=== PATIENT | male | born 1975 | race Caucasian/White ===

== ENCOUNTER 2017-05-18 21:23 | Emergency (ER) | payer SELFPAY ==
[2017-05-18 21:50] VITALS: BP 134/83
== END 2017-05-18 21:54 | disposition left against medical advice (07) ==
LOC: ER 21:23
DX: Z53.21 Procedure and treatment not carried out due to patient leaving prior to being seen by health care provider (principal)

== ENCOUNTER 2017-05-27 19:47 | Emergency (ER) | payer SELFPAY ==
[2017-05-27 19:59] VITALS: BP 129/92
[2017-05-27] MEDS ORDERED: LIDOCAINE 1% INJ-PF (10 MG/ML) 30 ML SDV INJ ONE (20:02)
--- NOTE | 2017-05-27 20:03 | ER Document Report ---
HPI - HPI Patient complains to provider of: Left index finger laceration Pain Level: 3 Context: Patient is a 42-year-old male presents emergency department with left index finger laceration. Patient already in a cast from a previous wrist injury. States that he was trying to stop piece of wood when the wood slipped and using a band saw he cut his finger. Patient able to move it and sensation intact distal to the injury. Patient's tetanus is up-to-date. Patient states that he did have some beers prior to arrival due to the pain. Past Medical History - Social History Smoking Status: Current Every Day Smoker Family History: Arthritis, DM, Hyperlipidemia, Hypertension, Malignancy Renal/ Medical History: Denies: Hx Peritoneal Dialysis Traumatic Medical History: Reports: Hx Fractures - Ankle fingers toes shoulder elbow Past Surgical History: Reports: Hx Orthopedic Surgery - Tendon surgery hand, Other - Laser surgery to laryngeal cancer - Immunizations Immunizations up to date: Yes Hx Diphtheria, Pertussis, Tetanus Vaccination: Yes Vertical Provider Document - CONSTITUTIONAL Agree With Documented VS: Yes Notes: PHYSICAL EXAM GENERAL: Alert, interacts well. EXTREMITIES: Moves all 4 extremities spontaneously. No edema, radial pulses 2/4 bilaterally. No cyanosis. Cap refill less than 2 seconds in all upper extremity digits. NEUROLOGICAL: Alert and oriented x4. Normal speech. Sensation intact in all upper extremity digits PSYCH: Normal affect, normal mood. SKIN: Warm, dry, normal turgor. Proximal phalanx dorsal surface of the left index finger over the with a flap laceration measuring approximately 3 cm - INFECTION CONTROL TRAVEL OUTSIDE OF THE [place] IN LAST 30 DAYS: No - RESPIRATORY O2 Sat by Pulse Oximetry: 96 Course - Re-evaluation Re-evalutation: 05/27/17 21:16 Patient is a 42-year-old male who is hemodynamic stable, no acute distress afebrile. Laceration closed primarily after copious irrigation with Betadine and saline. No evidence of fracture or retained foreign body noted on x-ray. Patient placed in splint for comfort. Stable for discharge home. Patient educated on suture removal time. - Vital Signs Vital signs: Temp Pulse Resp BP Pulse Ox 98.1 F 96 20 129/92 H 96 05/27/17 19:58 05/27/17 19:58 05/27/17 19:58 05/27/17 19:58 05/27/17 19:58 Procedures - Laceration/Wound Repair Left 2nd digit Wound length (cm): 3 Wound's Depth, Shape: Superficial, Linear Laceration pre-procedure: Sterile PPE donned, Betadine prep applied, Sterile drapes applied Anesthetic type: 1% Lidocaine Volume Anesthetic (mLs): 4 Wound explored: Clean, No foreign body removed Irrigated w/ Saline (mLs): 1,000 Wound Repaired With: Sutures Suture Size/Type: 6:0, Nylon Number of Sutures: 3 Layer Closure?: No Post-procedure wound care: Sterile dressing applied, Splint applied Post-procedure NV exam normal: Yes Complications: No Discharge - Discharge Clinical Impression: Laceration Condition: Good Disposition: HOME, SELF-CARE Additional Instructions: LACERATION CARE: Your laceration has been sutured to keep the skin edges aligned during healing. The time of suture removal depends on the nature and location of your cut. Please follow the care instructions the doctor has outlined for you and return for further care, according to the schedule you've been given. Keep the wound and dressing clean. Unless you were told otherwise, you may shower daily, blotting the wound dry with a clean, unused towel. At other times, If the dressing gets wet or blood soaked, remove it and blot the wound dry, then reapply a new dressing. Unless you were instructed otherwise, dressings should be changed at least daily. If any signs of infection occur (swelling, redness, drainage, increasing tenderness, red streaks, tender lumps in the armpit or groin above the laceration, or fever), see the doctor immediately. SOAP CLEANSING: Gently wash the wound daily using a mild soap (like Ivory, Phisoderm, Neutrogena). Use warm water, rubbing gently until all debris, ooze, and crusting have been washed from the wound. Allow to dry briefly (about 10 minutes) after cleaning. Repeat this cleansing at least three times a day for the first two days and then once or twice a day. ANTIBIOTIC OINTMENT PROTECTION: Your wounds are such that dressing them is not practical or optional. After cleansing, you should apply a thin coating of antibiotic ointment ( Bacitracin, not Neosporin) to the wounds at least three times daily. This lessens infection risk, and may decrease the amount of scarring. Use a q-tip or dull butter knife, not your finger, to apply this ointment. Any debris or ooze which builds up in the ointment should be gently rubbed off with a sterile gauze pad. Harder crusting may need to be gently scrubbed off with a clean wash cloth with soap and warm water, perhaps applying a warm, wet wash cloth to the wound for ten minutes first. Development of redness, severe itching, or blistering may mean allergy to the ointment. See the doctor. PROPHYLACTIC ANTIBIOTIC: The antibiotics which have been prescribed are designed to decrease the risk of infection. Only certain types of wounds benefit from this -- the typical cut, scrape, or burn DOES NOT require antibiotics. Of course, infection can still occur despite the use of prophylactic antibiotics. Your wound will heal with less chance of an infectious complication if you take the medication as directed. The most important dose is the FIRST dose, so don't delay filling the prescription! ORAL NARCOTIC MEDICATION: You have been given a prescription for pain control. This medication is a narcotic. It's best taken with food, as nausea can result if taken on an empty stomach. Don't operate machinery or drive within six hours of taking this medication. Do not combine this medicine with alcohol, or with any medication which can cause sedation (such as cold tablets or sleeping pills) unless you get permission from the physician. Narcotics tend to cause constipation. If possible, drink plenty of fluids and eat a diet high in fiber and fruits. FOLLOW-UP CARE: Your sutures should be removed in 8-10 days. To facilitate a timely removal of your sutures, you may return to the Emergency Department at [facility]. You do not need to call for an appointment, but the best time to come in for suture removal is early in the morning. If you have been referred to another physician for follow-up care, call that physicians office for an appointment as you were instructed. If you experience a significant change in your laceration, or if you are concerned there may be an infection (swelling, redness, drainage, increasing tenderness, red streaks, tender lumps in the armpit or groin above the laceration, or fever) , return to the Emergency Department immediately re-evaluation. Prescriptions: Cephalexin Monohydrate [Keflex 500 mg Capsule] 500 mg PO Q6H 5 Days capsule
--- NOTE | 2017-05-27 20:48 | RADIOLOGY REPORT (SQ) ---
EXAM DESCRIPTION: FINGER LEFT COMPLETED DATE/TIME: 05/27/2017 8:33 pm REASON FOR STUDY: laceration, PIP swelling COMPARISON: 05/05/2017 NUMBER OF VIEWS: Three views. TECHNIQUE: AP, lateral, and oblique images acquired of the left 3rd digit LIMITATIONS: None. FINDINGS: MINERALIZATION: Normal. BONES: Previously noted wrist fracture. No acute phalangeal fracture. SOFT TISSUES: No soft tissue swelling. No foreign body. OTHER: No other significant finding. IMPRESSION: No fracture or foreign body of the 3rd digit. COMMENT: SITE OF TRAUMA/COMPLAINT MARKED/STAMP COMPLETED: No TECHNICAL DOCUMENTATION: JOB ID: [id number] [employer]- All Rights Reserved
[2017-05-27] MEDS ORDERED: HYDROCODONE/ACETAMINOPHEN 5-325 MG 6 TAB/DSPK PO PRN (21:19)
== END 2017-05-27 21:45 | disposition home or self-care (01) ==
LOC: ER 19:47
PROC: 0HQGXZZ Repair Left Hand Skin, External Approach (ICD-10-PCS; principal; 2017-05-27)
DX: S61.211A Laceration without foreign body of left index finger without damage to nail, initial encounter (principal); W45.8XXA Other foreign body or object entering through skin, initial encounter; F17.200 Nicotine dependence, unspecified, uncomplicated
CPT/HCPCS: 99283; 73140; 12002; J3490

== ENCOUNTER 2018-08-11 16:29 | Emergency (ER) | payer SELFPAY ==
--- NOTE | 2018-08-11 16:59 | ER Document Report ---
ED General - General Stated Complaint: POSSIBLE ALCOHOL WITHDRAWAL Time Seen by Provider: 08/11/18 16:41 TRAVEL OUTSIDE OF THE [place] IN LAST 30 DAYS: No - HPI Notes: Patient is a 43-year-old male that presents to the emergency department for chief complaint of wanting alcohol detox. Patient reports a long history of alcoholism. He last had detox in April 2018 and reports about 80 days of sobriety. Patient states he has been drinking at least 8-10 beer and more beverage drinks today. He has had numerous mixed beverages over the last few days. Patient states that he is not in alcohol withdrawal but does not want to be in alcohol withdrawal. He does have a history of withdrawal seizures in the past. Currently he denies any symptoms. His last drink was 2 hours ago. He denies feeling nauseated or tremulous. Patient had called police to assist with getting him into alcohol withdrawal, please called EMS to bring patient to the ED. Past Medical History: History of alcohol withdrawal seizures Past Surgical History: Orthopedic surgery to hand Social History: Daily tobacco. Daily alcohol. Denies drug use Family History: Reviewed and noncontributory for presenting illness Allergies: Reviewed, see documented allergy list. REVIEW OF SYSTEMS: CONSTITUTIONAL : No fever No chills No diaphoresis No recent illness EENT: No vision changes No congestion No sore throat CARDIOVASCULAR: No chest pain No palpitations RESPIRATORY: No shortness of breath No cough No difficulty breathing GASTROINTESTINAL: No abdominal pain No nausea No vomiting No diarrhea GENITOURINARY: No dysuria No hematuria No difficulty urinating MUSCULOSKELETAL: No back pain No leg pain No arm pain SKIN: No rashes No lesions LYMPHATIC: No swollen, enlarged glands. NEUROLOGICAL: No lightheadedness No headache No weakness No paresthesias PSYCHIATRIC: No anxiety No depression PHYSICAL EXAMINATION: Vital signs reviewed, nursing noted reviewed. GENERAL: Well-appearing, well-nourished and in no acute distress. HEAD: Atraumatic, normocephalic. EYES: Eyes appear normal, extraocular movements intact, sclera anicteric, conjunctiva are normal. ENT: nares patent, oropharynx clear without exudates. Moist mucous membranes. NECK: Normal range of motion, supple without lymphadenopathy LUNGS: Breath sounds clear to auscultation bilaterally and equal. No wheezes rales or rhonchi. HEART: Regular rate and rhythm without murmurs ABDOMEN: Soft, nontender, normoactive bowel sounds. No rebound, guarding, or rigidity. No masses appreciated. EXTREMITIES: Nontender, good range of motion, no pitting or edema. NEUROLOGICAL: No focal neurological deficits. Moves all extremities spontaneously Motor and sensory grossly intact on exam. PSYCH: Agitated SKIN: Warm, Dry, normal turgor, no rashes or lesions noted on exposed skin - Related Data Allergies/Adverse Reactions: No Known Allergies Allergy (Verified 05/27/17 19:53) Past Medical History - Social History Smoking Status: Current Every Day Smoker Family History: Arthritis, DM, Hyperlipidemia, Hypertension, Malignancy Renal/ Medical History: Denies: Hx Peritoneal Dialysis Traumatic Medical History: Reports: Hx Fractures - Ankle fingers toes shoulder elbow Past Surgical History: Reports: Hx Orthopedic Surgery - Tendon surgery hand, Other - Laser surgery to laryngeal cancer - Immunizations Immunizations up to date: Yes Hx Diphtheria, Pertussis, Tetanus Vaccination: Yes Course - Re-evaluation Re-evalutation: 08/11/18 16:56 Vitals reviewed. Nursing notes reviewed. Patient is well-appearing and able to ambulate. He is not tachycardic or tremulous. He is not in acute alcohol withdrawal. Patient is otherwise asymptomatic. I discussed his options with Vandana and since he is self-pay he will be given referral to [facility]. Patient encouraged to call them now to see if any bed is available this evening. It is my understanding that there is currently no inpatient options for him to be placed from the emergency room. Patient denies any homicidal or suicidal ideation. When I told him that he cannot be directly placed the second from the emergency room he became verbally combative with myself and staff. He is now very agitated. He does state he is going to call [facility] who I believe will be able to give him assistance this evening. Patient encouraged to return to the emergency room if he did develops any symptoms. Discharge - Discharge Clinical Impression: Alcohol intoxication Qualifiers: Complication of substance-induced condition: uncomplicated Qualified Code(s): F10.920 - Alcohol use, unspecified with intoxication, uncomplicated Condition: Stable Disposition: HOME, SELF-CARE Instructions: Chronic Alcoholism ([facility]), Acute Alcohol Intoxication ([facility]) Additional Instructions: Please return to the emergency department if you have any worsening, or concern of your symptoms. Please return to the emergency department if you develop chest pain, difficulty breathing, severe abdominal pain, or ongoing vomiting. Please follow-up with your primary care physician in 2-3 days and any other recommended physicians. If prescribed, take all medications as directed. If you have any questions or concerns do not hesitate to return the emergency department for evaluation. Please call [facility] and the other phone numbers provided to you to assist in getting inpatient alcohol detox. Return to the emergency room if you develop any symptoms including nausea, vomiting, numbness, tingling, shakiness, hallucinations, chest pain and difficulty breathing. Referrals: [facility] [Provider Group] - Follow up as needed [facility] [Provider Group] - Follow up as needed
[2018-08-11 19:11] VITALS: BP 129/92
== END 2018-08-11 17:07 | disposition home or self-care (01) ==
LOC: ER 16:29
DX: F10.220 Alcohol dependence with intoxication, uncomplicated (principal); F17.200 Nicotine dependence, unspecified, uncomplicated
CPT/HCPCS: 99284

== ENCOUNTER 2018-08-11 20:21 | Inpatient (IN) | payer SELFPAY ==
[2018-08-11 21:59] LABS: ABSOLUTE EOSINOPHILS # (AUTO) 0.1 10^3/uL (0.0-0.6); ABSOLUTE LYMPHOCYTES (AUTO) 2.2 10^3/uL (0.5-4.7); ABSOLUTE MONOCYTES (AUTO) 0.2 10^3/uL (0.1-1.4); ABSOLUTE NEUT (AUTO) 1.4 10^3/uL (1.7-8.2); BASOPHILS % (AUTO) 0.9 % (0-2); EOSINOPHILS % (AUTO) 1.4 % (0-6); HEMATOCRIT 38.6 % (37.9-51.0); HEMOGLOBIN 13.6 g/dL (13.5-17.0); LYMPHOCYTES % (AUTO) 56.5 % (13-45); MEAN CORPUSCULAR HEMOGLOBIN 33.6 pg (27.0-33.4); MEAN CORPUSCULAR HGB CONC 35.1 g/dL (32.0-36.0); MEAN CORPUSCULAR VOLUME 96 fl (80-97); MONOCYTES % (AUTO) 5.2 % (3-13); PLATELET COUNT 259 10^3/uL (150-450); RED BLOOD COUNT 4.04 10^6/uL (4.35-5.55); RED CELL DISTRIBUTION WIDTH 13.2 % (11.5-14.0); TOTAL CELLS COUNTED % (AUTO) 100 %; WHITE BLOOD COUNT 3.9 10^3/uL (4.0-10.5)
[2018-08-11 22:18] LABS: ALANINE AMINOTRANSFERASE 28 U/L (21-72); ALBUMIN 4.5 g/dL (3.5-5.0); ALKALINE PHOSPHATASE 69 U/L (38-126); ANION GAP 10 (5-19); ASPARTATE AMINO TRANSFERASE 57 U/L (17-59); BILIRUBIN,DIRECT 0.1 mg/dL (0.0-0.4); BILIRUBIN,TOTAL 0.3 mg/dL (0.2-1.3); BLOOD UREA NITROGEN 8 mg/dL (7-20); CALCIUM 8.8 mg/dL (8.4-10.2); CARBON DIOXIDE 29 mmol/L (22-30); CHLORIDE 106 mmol/L (98-107); GLUCOSE 90 mg/dL (75-110); TOTAL PROTEIN 7.1 g/dL (6.3-8.2)
[2018-08-11 22:33] LABS: ACETAMINOPHEN < 10 ug/mL (10-30); POTASSIUM 3.8 mmol/L (3.6-5.0); SALICYLATE < 1.0 mg/dL (2.0-20.0)
[2018-08-11 22:34] LABS: ALCOHOL 329 mg/dL (NONE DETECTED)
[2018-08-11 22:51] LABS: APPEARANCE,URINE CLEAR; BILIRUBIN,URINE NEGATIVE (NEGATIVE); COLOR,URINE STRAW; GLUCOSE, URINE NEGATIVE (NEGATIVE); KETONES,URINE NEGATIVE (NEGATIVE); LEUKOCYTE ESTERASE,URINE NEGATIVE (NEGATIVE); NITRITE,URINE NEGATIVE (NEGATIVE); PROTEIN,URINE NEGATIVE (NEGATIVE); UROBILINOGEN,URINE NEGATIVE mg/dL (<2.0)
[2018-08-11 23:06] LABS: URINE AMPHETAMINES SCREEN NEGATIVE; URINE BARBITURATES SCREEN NEGATIVE; URINE BENZODIAZEPINES SCREEN NEGATIVE; URINE COCAINE SCREEN NEGATIVE; URINE MARIJUANA (THC) SCREEN NEGATIVE; URINE METHADONE SCREEN NEGATIVE; URINE PHENCYCLIDINE SCREEN NEGATIVE
--- NOTE | 2018-08-11 23:20 | ER Document Report ---
ED General - General Chief Complaint: Alcohol Withdrawl Stated Complaint: DETOX Time Seen by Provider: 08/11/18 21:26 Notes: Patient is a 43-year-old male, homeless, chronic alcoholic who presents with [facility] stating that he is feeling suicidal and is requesting alcohol withdrawal therapy. Patient was seen in the emergency department earlier today for the same although at that time denied suicidality. The patient reports that he has had passive thoughts of wanting to step in front of a bus. States that he feels like if he does not have any options to get into rehab or detox he will follow throughout his plan to harm himself. Has never made attempts to harm himself in the past. States that his drinking seems to worsen his depressive and suicidal thoughts. Has a history of complex withdrawals in the past including seizures. Denies any acute medical complaints currently. TRAVEL OUTSIDE OF THE [place] IN LAST 30 DAYS: No - Related Data Allergies/Adverse Reactions: mayonnaise Adverse Reaction (Mild, Verified 08/11/18 21:11) cats Allergy (Uncoded 08/11/18 21:11) Past Medical History - General Information source: Patient - Social History Smoking Status: Current Every Day Smoker Frequency of alcohol use: Heavy Drug Abuse: None Lives with: Homeless Family History: Arthritis, DM, Hyperlipidemia, Hypertension, Malignancy Patient has suicidal ideation: No Patient has homicidal ideation: No Neurological Medical History: Reports: Hx Seizures - with withdrawal Renal/ Medical History: Denies: Hx Peritoneal Dialysis Traumatic Medical History: Reports: Hx Fractures - Ankle fingers toes shoulder elbow Past Surgical History: Reports: Hx Orthopedic Surgery - Tendon surgery hand, Other - Laser surgery to laryngeal cancer - Immunizations Immunizations up to date: Yes Hx Diphtheria, Pertussis, Tetanus Vaccination: Yes Review of Systems - Review of Systems Notes: Constitutional: Negative for fever. HENT: Negative for sore throat. Eyes: Negative for visual changes. Cardiovascular: Negative for chest pain. Respiratory: Negative for shortness of breath. Gastrointestinal: Negative for abdominal pain, vomiting or diarrhea. Genitourinary: Negative for dysuria. Musculoskeletal: Negative for back pain. Skin: Negative for rash. Neurological: Negative for headaches, weakness or numbness. 10 point ROS negative except as marked above and in HPI. Physical Exam - Vital signs Vitals: Temp Pulse Resp BP Pulse Ox 97.8 F 92 16 150/97 H 97 08/11/18 20:28 08/11/18 20:28 08/11/18 20:28 08/11/18 20:28 08/11/18 20:28 Interpretation: Hypertensive Notes: PHYSICAL EXAMINATION: GENERAL: Somewhat disheveled but in no acute distress HEAD: Atraumatic, normocephalic. EYES: Pupils equal round and reactive to light, extraocular movements intact, sclera anicteric, conjunctiva are normal. ENT: nares patent, oropharynx clear without exudates. Moist mucous membranes. NECK: Normal range of motion, supple without lymphadenopathy LUNGS: Breath sounds clear to auscultation bilaterally and equal. No wheezes rales or rhonchi. HEART: Regular rate and rhythm without murmurs ABDOMEN: Soft, nontender, normoactive bowel sounds. No guarding, no rebound. No masses appreciated. EXTREMITIES: Normal range of motion, no pitting or edema. No cyanosis. NEUROLOGICAL: Face symmetric. Tongue protrudes midline. Extraocular motions intact. Pupils are 2 mm and equally reactive. Normal speech, normal gait. 5 out of 5 strength in both the distal and proximal upper and lower extremities bilaterally. Sensation is grossly intact throughout. Finger to nose testing normal. Pronator drift normal. PSYCH: Intoxicated, mildly agitated but redirectable SKIN: Warm, Dry, normal turgor, no rashes or lesions noted. Course - Re-evaluation Re-evalutation: 08/11/18 23:20 Patient presents complaining of being acutely suicidal, stating that he has been thinking about walking from the bus all day today. Patient reports that he has been drinking heavily, is seeking detox, was here earlier, informed that we do not provide medical detox at this facility which is an accurate statement. Patient does however state that since that time, realizing that he does not have any other options he is becoming despondent and suicidal. Patient states that he is simply seeking help and if he cannot get help he plans to harm himself. He is here with [facility]. They do not have any resources for the patient at this time given his homelessness as well as lack of resources. Patient will therefore remain in the emergency department. Medical screening exam unremarkable. Medical screening labs show markedly elevated alcohol level. He is not currently have any signs or symptoms of alcohol withdrawal. He is otherwise cleared for evaluation and disposition by behavioral health services in the morning. - Vital Signs Vital signs: Temp Pulse Resp BP Pulse Ox 97.9 F 72 16 115/77 100 08/12/18 03:06 08/12/18 03:06 08/12/18 03:06 08/12/18 03:06 08/12/18 03:06 - Laboratory Result Diagrams: 08/11/18 21:50 08/11/18 21:50 Laboratory results interpreted by me: 08/11/18 08/11/18 21:50 21:50 WBC 3.9 L RBC 4.04 L MCH 33.6 H Seg Neutrophils % 36.0 L Lymphocytes % 56.5 H Absolute Neutrophils 1.4 L Salicylates < 1.0 L Acetaminophen < 10 L Serum Alcohol 329 H* - EKG Interpretation by Me Additional EKG results interpreted by me: 08/12/18 03:44 Sinus rhythm, rate 82. No ST elevations or depressions. QTC is 453. Discharge - Discharge Clinical Impression: Suicidal ideation Alcohol intoxication Qualifiers: Complication of substance-induced condition: uncomplicated Qualified Code(s): F10.920 - Alcohol use, unspecified with intoxication, uncomplicated Condition: Fair
[2018-08-12] MEDS ORDERED: NICOTINE 21 MG/24 HR PATCH.TD24 TD ONE (03:43)
--- NOTE | 2018-08-12 08:57 | EKG REPORT ---
SEVERITY:- NORMAL ECG - SINUS RHYTHM : Confirmed by: Alison Mendez MD 12-Aug-2018 08:57:25
--- NOTE | 2018-08-12 09:41 | PSYCHOLOGICAL NOTE ---
Psych Note - Psych Note Date seen by psych provider: 08/12/18 Time seen by psych provider: 07:10 Psych Note: Reason for Consult: detox and suicidal ideation Patient is a 43-year-old male, homeless, chronic alcoholic who presents with [facility] stating that he is feeling suicidal and is requesting alcohol withdrawal therapy. Patient reports he was brought to [facility] ED because he is a "in very bad shape." He reports he has histories of seizures and he needs medication. He states he is "not comfortable in his skin" and it is "very scary." Patient reports he is frustrated because he is not received any medication and that normally he receives Ativan or Valium when he reports that he needs assistance with detox. He reports that he is currently going through withdrawal symptoms and that he has a history of seizures. He reports that he will be having a seizure in 1 hour. Clinician notes patient does not appear to be sweating or having any tremors. Patient is alert and orientated to person, place, time and circumstance. Mood is overall euthymic with congruent affect however patient does demonstrate some irritability. Patient is endorsing passive suicidal ideation I no plans means or intent. Patient denies homicidal ideation. Delusions are absent behaviors congruent with intact reality based presentation I organized and linear thought process. Eye contact is poor. Conversational speech is within normal rate, tone and prosody. Intellectual abilities appear to be within the average range. Attention and concentration are poor as patient is very focused on wanting detox and medication. Insight, judgment, impulse control are fair by patient following through with recognition of contacted [facility] for continued assistance with detox. no medication recommendations at this time Unspecified Alcohol abuse Impression/Plan: patient is cleared from acute psychiatric services. Patient reports passive suicidal ideation connected to wanting assistance on detox. Patient was seen by [facility] staff yesterday and provided detox information and [facility] contact information. Patient contacted [facility] however there was no bed available for detox last night. Patient is recommended to continue working with [facility] for detox assistance. Dr. Resendiz was consulted on the care and mangment of this patient; attending physician is in agreement with recommendations and disposition.
--- NOTE | 2018-08-12 09:43 | ER Document Report ---
Doctor's Note Notes: 08/12/18 09:43 43-year-old homeless depressed male with a history of alcoholism with alcohol withdrawal seizures in the past who is suicidal secondary to lack of options to help withdrawal from alcohol. [facility] brought the patient here. Labs and alcohol level as recorded. Vital signs are stable. Behavioral health consultation is pending. 08/12/18 14:06 The behavioral health psychiatry team has seen and evaluated the patient and have been in contact with [facility]. They were unable to find placement for the patient where he is able to detoxify from the alcohol. Patient states he has multiple withdrawal seizures in the past and feels very shaky and anxious. He states he truly will stop drinking alcohol and states he cannot "go on like this any longer." Given that the patient has had withdrawal seizures in the past and is attempting to detox, with no placement available, after holding the patient for greater than 14 hours, we will admit the patient to the hospitalist service on [facility] protocol.
[2018-08-12] MEDS ORDERED: LORAZEPAM 1 MG TABLET PO ONE (10:45)
--- NOTE | 2018-08-12 15:17 | PDOC H&P ---
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 He went to the ER yesterday saying he wanted to "detox". He did not have clinical signs or symptoms of alcohol withdrawal that time and was recommended outpatient referral for alcohol cessation program. He went back to the ED last night saying he was having passive thoughts of stepping in front of a bus because of bieng apprehensive about going into withdrawal. He was observed in the ED where he developed tremors. He has reported history of alcohol withdrawal seizure. He received 2 mg of Ativan earlier today. He was seen by psych in the ER as well for his passive suicidal thoughts. Psych is not able to find a bed for him at a substance use program in [facility]. He did have HR in the 90s and became slightly hypertensive. He also had hand tremors. He was referred to hospitalist service for OBS admission for alcohol withdrawal. Upon encounter, he denies active suicidal or homicidal ideation. He says he was recently released from prison a week ago and started drinking again. He says he has been drinking for the past 30 yrs, consuming beers and more than a josemanuel of vodka a day on the average. His last drink was yesterday morning at 6 am. Past Medical History Neurological Medical History: Reports: Seizures - with withdrawal Past Surgical History Past Surgical History: Reports: Orthopedic Surgery - Tendon surgery hand, Other - Laser surgery to laryngeal cancer Social History Lives with: Homeless Smoking Status: Current Every Day Smoker Family History Family History: Arthritis, DM, Hyperlipidemia, Hypertension, Malignancy Parental Family History Reviewed: Yes - alcohol abue in dad, mom and sister Children Family History Reviewed: No Sibling(s) Family History Reviewed.: No Medication/Allergy Home Medications: No Home Medications 08/12/18 Allergies/Adverse Reactions: mayonnaise Adverse Reaction (Mild, Verified 08/11/18 21:11) cats Allergy (Uncoded 08/11/18 21:11) Review of Systems All systems: reviewed and no additional remarkable complaints except as stated - as mentioned in HPI Physical Exam Vital Signs: Temp Pulse Resp BP Pulse Ox 98.2 F 78 20 132/76 H 98 08/12/18 10:38 08/12/18 10:38 08/12/18 07:00 08/12/18 10:38 08/12/18 10:38 Intake & Output 08/11/18 08/12/18 08/13/18 06:59 06:59 06:59 Weight 169 lb 8.568 oz General appearance: PRESENT: no acute distress, well-developed, well-nourished Head exam: PRESENT: atraumatic, normocephalic Eye exam: PRESENT: conjunctiva pink, EOMI, PERRLA. ABSENT: scleral icterus Ear exam: PRESENT: normal external ear exam Mouth exam: PRESENT: moist, tongue midline Neck exam: ABSENT: carotid bruit, JVD, lymphadenopathy, thyromegaly Respiratory exam: PRESENT: clear to auscultation trent. ABSENT: rales, rhonchi, wheezes Cardiovascular exam: PRESENT: RRR. ABSENT: diastolic murmur, rubs, systolic murmur Pulses: PRESENT: normal dorsalis pedis pul GI/Abdominal exam: PRESENT: normal bowel sounds, soft. ABSENT: distended, guarding, mass, organolmegaly, rebound, tenderness Rectal exam: PRESENT: deferred Extremities exam: PRESENT: full ROM. ABSENT: calf tenderness, clubbing, pedal edema Musculoskeletal exam: PRESENT: other - note of tremulous hands and arms when raised Neurological exam: PRESENT: alert, awake, oriented to person, oriented to place, oriented to time, oriented to situation, CN II-XII grossly intact. ABSENT: motor sensory deficit Results Laboratory Results: 08/11/18 21:50 08/11/18 21:50 08/11/18 08/11/18 08/11/18 21:50 21:50 22:38 WBC 3.9 L RBC 4.04 L Hgb 13.6 Hct 38.6 MCV 96 MCH 33.6 H MCHC 35.1 RDW 13.2 Plt Count 259 Seg Neutrophils % 36.0 L Lymphocytes % 56.5 H Monocytes % 5.2 Eosinophils % 1.4 Basophils % 0.9 Absolute Neutrophils 1.4 L Absolute Lymphocytes 2.2 Absolute Monocytes 0.2 Absolute Eosinophils 0.1 Absolute Basophils 0.0 Sodium 145.0 Potassium 3.8 Chloride 106 Carbon Dioxide 29 Anion Gap 10 BUN 8 Creatinine 0.56 Est GFR ( Amer) > 60 Est GFR (Non-Af Amer) > 60 Glucose 90 Calcium 8.8 Total Bilirubin 0.3 AST 57 ALT 28 Alkaline Phosphatase 69 Total Protein 7.1 Albumin 4.5 Urine Color STRAW Urine Appearance CLEAR Urine pH 8.0 Ur Specific [place] 1.010 Urine Protein NEGATIVE Urine Glucose (UA) NEGATIVE Urine Ketones NEGATIVE Urine Blood NEGATIVE Urine Nitrite NEGATIVE Ur Leukocyte Esterase NEGATIVE Urine WBC (Auto) 1 Assessment & Plan - Diagnosis (1) Alcohol withdrawal Qualifiers: Complication of substance-induced condition: uncomplicated Qualified Code(s): F10.230 - Alcohol dependence with withdrawal, uncomplicated Is this a current diagnosis for this admission?: Yes Plan: CIWA protocol. Ativan as needed. IV fluids. PO thiamine and folate supplemen tation. (2) Alcohol dependence Is this a current diagnosis for this admission?: Yes Plan: Counseled about alcohol cessation. - Time Time Spent: 30 to 50 Minutes
[2018-08-12] MEDS: FOLIC ACID 1 MG TABLET PO SCH (16:39)
[2018-08-12] MEDS: NORMAL SALINE 1000 ML 1,000 ML IV PRN (16:39)
[2018-08-12] MEDS: THIAMINE HCL 100 MG TABLET PO SCH (16:39)
[2018-08-12] MEDS: LORAZEPAM INJ 2 MG/1 ML VIAL IV PRN (17:48)
[2018-08-13] MEDS: NORMAL SALINE 1000 ML 1,000 ML IV PRN ×2 (02:55→12:26)
[2018-08-13] MEDS: LORAZEPAM INJ 2 MG/1 ML VIAL IV PRN ×4 (08:10→22:04)
[2018-08-13] MEDS: ACETAMINOPHEN 325 MG TABLET PO PRN ×2 (10:20→16:27)
[2018-08-13] MEDS: FOLIC ACID 1 MG TABLET PO SCH (10:20)
[2018-08-13] MEDS: THIAMINE HCL 100 MG TABLET PO SCH (10:20)
--- NOTE | 2018-08-13 15:45 | PDOC PROGRESS REPORT ---
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 He was subsequently admitted for alcohol withdrawal. 08/13: He required 4 mg of Ativan overnight. Per RN, he had more noticeable hand tremors last night. He was sleepy and just got Ativan upon encounter but is responsive and well oriented. No seizure. Reason For Visit: ALCOHOL WITHDRAWAL Physical Exam Vital Signs: Temp Pulse Resp BP Pulse Ox 98.1 F 62 20 154/97 H 99 08/13/18 12:26 08/13/18 12:26 08/13/18 12:26 08/13/18 12:26 08/13/18 12:26 Intake & Output 08/12/18 08/13/18 08/14/18 06:59 06:59 06:59 Intake Total 1525 952 Balance 1525 952 Weight 169 lb 8.568 oz 154 lb 5.177 oz General appearance: PRESENT: no acute distress, well-developed, well-nourished Head exam: PRESENT: atraumatic, normocephalic Eye exam: PRESENT: conjunctiva pink, EOMI, PERRLA. ABSENT: scleral icterus Ear exam: PRESENT: normal external ear exam Mouth exam: PRESENT: moist, tongue midline Neck exam: ABSENT: carotid bruit, JVD, lymphadenopathy, thyromegaly Respiratory exam: PRESENT: clear to auscultation trent. ABSENT: rales, rhonchi, wheezes Cardiovascular exam: PRESENT: RRR. ABSENT: diastolic murmur, rubs, systolic murmur Pulses: PRESENT: normal dorsalis pedis pul GI/Abdominal exam: PRESENT: normal bowel sounds, soft. ABSENT: distended, guarding, mass, organolmegaly, rebound, tenderness Rectal exam: PRESENT: deferred Neurological exam: PRESENT: alert, awake, oriented to person, oriented to place, oriented to time, oriented to situation, CN II-XII grossly intact. ABSENT: motor sensory deficit Results Laboratory Results: 08/11/18 21:50 08/11/18 21:50 Assessment & Plan - Diagnosis (1) Alcohol withdrawal Qualifiers: Complication of substance-induced condition: uncomplicated Qualified Code(s): F10.230 - Alcohol dependence with withdrawal, uncomplicated Is this a current diagnosis for this admission?: Yes Plan: Continue CIWA protocol. Ativan as needed. IV fluids. PO thiamine and folate supplementation. (2) Alcohol dependence Is this a current diagnosis for this admission?: Yes Plan: Counseled about alcohol cessation. He is interested in pursuing outpatient alcohol abuse programs later. - Time Time Spent with patient: 15-24 minutes
[2018-08-13] MEDS: FAMOTIDINE 20 MG TABLET PO SCH (17:42)
[2018-08-13] MEDS ORDERED: HALOPERIDOL LACTATE INJ 5 MG/1 ML VIAL IV ONE (23:29)
[2018-08-14] MEDS: LORAZEPAM INJ 2 MG/1 ML VIAL IV PRN ×2 (05:09→17:21)
[2018-08-14] MEDS: THIAMINE HCL 100 MG TABLET PO SCH (10:48)
[2018-08-14] MEDS: FOLIC ACID 1 MG TABLET PO SCH (10:48)
[2018-08-14] MEDS: FAMOTIDINE 20 MG TABLET PO SCH ×2 (10:48→17:18)
[2018-08-14] MEDS: NORMAL SALINE 1000 ML 1,000 ML IV PRN ×2 (10:49→21:36)
--- NOTE | 2018-08-14 13:54 | PDOC PROGRESS REPORT ---
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 He was subsequently admitted for alcohol withdrawal. 08/13: He required 4 mg of Ativan overnight. Per RN, he had more noticeable hand tremors last night. He was sleepy and just got Ativan upon encounter but is responsive and well oriented. No seizure. 08/14: Per RN, patient required Haldol once last night as he became restless. No other acute issue. He required 6 mg of Ativan overnight. He does tell me this morning that he feels better and feels less tremulous. He also verbalized he does not think he will be needed Ativan as frequently as he was in the first 2 days. Reason For Visit: ALCOHOL WITHDRAWAL Physical Exam Vital Signs: Temp Pulse Resp BP Pulse Ox 97.6 F 66 16 140/93 H 100 08/14/18 11:11 08/14/18 11:11 08/14/18 11:11 08/14/18 11:11 08/14/18 11:11 Intake & Output 08/13/18 08/14/18 08/15/18 06:59 06:59 06:59 Intake Total 1525 3305 Balance 1525 3305 Weight 154 lb 5.177 oz 164 lb 10.965 oz General appearance: PRESENT: no acute distress, well-developed, well-nourished Head exam: PRESENT: atraumatic, normocephalic Eye exam: PRESENT: conjunctiva pink, EOMI, PERRLA. ABSENT: scleral icterus Ear exam: PRESENT: normal external ear exam Mouth exam: PRESENT: moist, tongue midline Neck exam: ABSENT: carotid bruit, JVD, lymphadenopathy, thyromegaly Respiratory exam: PRESENT: clear to auscultation trent. ABSENT: rales, rhonchi, wheezes Cardiovascular exam: PRESENT: RRR. ABSENT: diastolic murmur, rubs, systolic murmur Pulses: PRESENT: normal dorsalis pedis pul GI/Abdominal exam: PRESENT: normal bowel sounds, soft. ABSENT: distended, guarding, mass, organolmegaly, rebound, tenderness Rectal exam: PRESENT: deferred Neurological exam: PRESENT: alert, awake, oriented to person, oriented to place, oriented to time, oriented to situation, CN II-XII grossly intact. ABSENT: motor sensory deficit Results Laboratory Results: 08/11/18 21:50 08/11/18 21:50 Assessment & Plan - Diagnosis (1) Alcohol withdrawal Qualifiers: Complication of substance-induced condition: uncomplicated Qualified Code(s): F10.230 - Alcohol dependence with withdrawal, uncomplicated Is this a current diagnosis for this admission?: Yes Plan: Continue CIWA protocol. Ativan as needed. Decrease Ativan to q6h prn. Decrease IV fluids to 50 cc/hr. PO thiamine and folate supplementation. Possible DC tomorrow if he continues to improve. (2) Alcohol dependence Is this a current diagnosis for this admission?: Yes Plan: Counseled about alcohol cessation. He is interested in pursuing outpatient alcohol abuse programs later. - Time Time Spent with patient: 25-34 minutes
[2018-08-15] MEDS: LORAZEPAM INJ 2 MG/1 ML VIAL IV PRN ×2 (02:14→08:21)
[2018-08-15 08:32] VITALS: BP 144/100
--- NOTE | 2018-08-15 16:06 | PDOC DISCHARGE SUMMARY ---
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 He went to the ER yesterday saying he wanted to "detox". He did not have clinical signs or symptoms of alcohol withdrawal that time and was recommended outpatient referral for alcohol cessation program. He went back to the ED last night saying he was having passive thoughts of stepping in front of a bus because of bieng apprehensive about going into withdrawal. He was observed in the ED where he developed tremors. He has reported history of alcohol withdrawal seizure. He received 2 mg of Ativan earlier today. He was seen by psych in the ER as well for his passive suicidal thoughts. Psych is not able to find a bed for him at a substance use program in [facility]. He did have HR in the 90s and became slightly hypertensive. He also had hand tremors. He was referred to hospitalist service for OBS admission for alcohol withdrawal. Upon encounter, he denies active suicidal or homicidal ideation. He says he was recently released from [facility] a week ago and started drinking again. He says he has been drinking for the past 30 yrs, consuming beers and more than a josemanuel of vodka a day on the average. His last drink was yesterday morning at 6 am. Hospital Course Hospital Course: THIS IS AN AMA NOTE. 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 He was subsequently admitted for alcohol withdrawal. 08/13: He required 4 mg of Ativan overnight. Per RN, he had more noticeable hand tremors last night. He was sleepy and just got Ativan upon encounter but is r esponsive and well oriented. No seizure. 08/14: Per RN, patient required Haldol once last night as he became restless. No other acute issue. He required 6 mg of Ativan overnight. He does tell me this morning that he feels better and feels less tremulous. He also verbalized he does not think he will be needed Ativan as frequently as he was in the first 2 days. He did not have any seizure-like activity. 08/15: Called by RN that patient wants to go now. RN told patient that provider is coming to reassess him as he may be discharged today after this physician's assessment. Patient apparently did not wait and walked out of the hospital and left AMA. Patient was not seen and examined by this provider today. Physical Exam Vital Signs: Temp Pulse Resp BP Pulse Ox 97.7 F 112 H 16 144/100 H 100 08/15/18 08:06 08/15/18 08:06 08/15/18 08:06 08/15/18 08:06 08/15/18 08:06 Intake & Output 08/14/18 08/15/18 08/16/18 06:59 06:59 06:59 Intake Total 3305 3520 Balance 3305 3520 Weight 164 lb 10.965 oz 160 lb 11.472 oz Results Laboratory Results: 08/11/18 21:50 08/11/18 21:50 Qualifiers - * PATIENT BEING DISCHARGED WITH ANY OF THE FOLLOWING DIAGNOSIS: No
== END 2018-08-15 09:21 | disposition left against medical advice (07) | DRG 894 ==
LOC: ER 20:21 → EH 08-12 14:53 → OBSVTOIN 08-12 14:53 → 4W 08-12 17:28
PROVIDERS: ADMIT Internal Medicine; ATTEND Internal Medicine
DX: F10.230 Alcohol dependence with withdrawal, uncomplicated (principal); R45.851 Suicidal ideations; G62.1 Alcoholic polyneuropathy; F17.200 Nicotine dependence, unspecified, uncomplicated; Z81.1 Family history of alcohol abuse and dependence; Z85.21 Personal history of malignant neoplasm of larynx; Z82.49 Family history of ischemic heart disease and other diseases of the circulatory system; Z83.3 Family history of diabetes mellitus; Z82.61 Family history of arthritis; Z83.438 Family history of other disorder of lipoprotein metabolism and other lipidemia; Z91.018 Allergy to other foods; Z91.048 Other nonmedicinal substance allergy status
CPT/HCPCS: 36415; 80053; 80307; 81001; 85025; 93005; 93010; 96374; 99285; J1630; J2060; J3490; J7030

== ENCOUNTER 2018-08-15 20:41 | Emergency (ER) | payer SELFPAY ==
--- NOTE | 2018-08-15 22:11 | ER Document Report ---
ED Substance Abuse / Acc. OD - General Chief Complaint: Alcohol Withdrawl Stated Complaint: ETOH Time Seen by Provider: 08/15/18 22:11 Mode of Arrival: Ambulatory Information source: Patient Notes: HISTORY OF PRESENT ILLNESS: Patient is a 43-year-old male with a past medical history of seizures and chronic alcohol abuse who presents with request for inpatient detox from alcohol. Onset: Chronic Provocation: None Quality: Heavy drinking every day both beer and liquor Radiation: None Severity: Severe Timing: Daily SI/HI: None Hallucinations: None Current therapist: Yes Current treatment: "Crisis team" REVIEW OF SYSTEMS: CONSTITUTIONAL : Denies fever or chills, no sweats. Denies recent illness. EENT: Denies eye, ear, throat, or mouth pain or symptoms. Denies nasal or sinus congestion. CARDIOVASCULAR: Denies chest pain. RESPIRATORY: Denies cough, cold, or chest congestion. Denies shortness of breath, difficulty breathing, or wheezing. GASTROINTESTINAL: Denies abdominal pain. Denies nausea, vomiting, or diarrhea. Denies constipation. GENITOURINARY: Denies difficulty urinating, painful urination, burning, frequency, or blood in urine. FEMALE GENITOURINARY: Denies vaginal bleeding, abnormal or irregular periods. Last menstrual period MUSCULOSKELETAL: Denies neck or back pain or joint pain or swelling. SKIN: Denies rash or skin lesions. HEMATOLOGIC : Denies easy bruising or bleeding. LYMPHATIC: Denies swollen, enlarged glands. NEUROLOGICAL: Denies altered mental status or loss of consciousness. Denies headache. Denies weakness or paralysis or loss of use of either side. Denies problems with gait or speech. Denies sensory or motor loss. PSYCHIATRIC: Positive for alcohol abuse. Denies suicidal/homocidal thoughts. Denies anxiety or stress or depression. All other systems reviewed and negative. PHYSICAL EXAMINATION: GENERAL: Well-appearing, well-nourished and in no acute distress. HEAD: Atraumatic, normocephalic. No scalp deformity, depression, or crepitance. EYES: Pupils are 3 mm and equal/round/reactive to light, extraocular movements intact, sclera anicteric, conjunctiva are normal. ENT: Nares patent bilaterally, oropharynx clear without exudates or palatal petechia. Moist mucous membranes. No tonsil hypertrophy. NECK: Normal range of motion, supple without lymphadenopathy. LUNGS: Breath sounds present, equal, and clear to auscultation bilaterally. No wheezes, rales, or rhonchi. HEART: Regular rate and rhythm without murmurs, rubs, or gallops. 2+ peripheral pulses. Normal capillary refill. ABDOMEN: Soft, nontender, nondistended. Normoactive bowel sounds. No guarding, no rebound. No masses appreciated. BACK: Normal contour, no midline tenderness. Rectal exam deferred. EXTREMITIES: Normal range of motion, no pitting or edema. No cyanosis. NEUROLOGICAL: No focal neurological deficits. Moves all extremities spontane ously and on command. PSYCH: Normal mood, normal affect. No suicidal thoughts/ideations. No homoci caroline thoughts/ideations. No hallucinations. SKIN: Warm, dry, normal turgor, no rashes or lesions noted. ASSESSMENT AND PLAN: This patient is a 43-year-old male who presents with chronic alcohol abuse requesting inpatient detox. Of note, the patient was admitted to the hospital and left AGAINST MEDICAL ADVICE 1 day ago; when questioned, he replies he had to "get my affairs in order before going someplace." Exam shows no signs consistent with acute alcohol withdrawal. 1. Will obtain labs, urine, and reassess for medical clearance. 2. Will likely discharge. TRAVEL OUTSIDE OF THE [place] IN LAST 30 DAYS: No - Related Data Allergies/Adverse Reactions: mayonnaise Adverse Reaction (Mild, Verified 08/11/18 21:11) cats Allergy (Uncoded 08/11/18 21:11) Past Medical History - General Information source: Patient - Social History Smoking Status: Current Every Day Smoker Chew tobacco use (# tins/day): No Frequency of alcohol use: Heavy Drug Abuse: None Lives with: Family Family History: Arthritis, DM, Hyperlipidemia, Hypertension, Malignancy Patient has suicidal ideation: No Patient has homicidal ideation: No - Past Medical History Cardiac Medical History: Reports: None Pulmonary Medical History: Reports: None EENT Medical History: Reports: None Neurological Medical History: Reports: Hx Seizures - with withdrawal Endocrine Medical History: Reports: None Renal/ Medical History: Reports: None. Denies: Hx Peritoneal Dialysis Malignancy Medical History: Reports None GI Medical History: Reports: None Musculoskeletal Medical History: Reports None Skin Medical History: Reports None Psychiatric Medical History: Reports: None Traumatic Medical History: Reports: Hx Fractures - Ankle fingers toes shoulder elbow Infectious Medical History: Reports: None Past Surgical History: Reports: Hx Orthopedic Surgery - Tendon surgery hand, Other - Laser surgery to laryngeal cancer - Immunizations Immunizations up to date: Yes Hx Diphtheria, Pertussis, Tetanus Vaccination: Yes Physical Exam - Vital signs Vitals: Temp Pulse Resp BP Pulse Ox 97.8 F 103 H 16 131/81 H 99 08/15/18 21:15 08/15/18 21:15 08/15/18 21:15 08/15/18 21:15 08/15/18 21:15 Course - Re-evaluation Re-evalutation: 08/16/18 04:36 Patient has been medically cleared. He does have an ethanol of 116. He will be given a prescription for Librium and will be discharged home with return pr ecautions and follow-up with outpatient resources. Patient reports understanding and agreeing with the plan. - Vital Signs Vital signs: Temp Pulse Resp BP Pulse Ox 97.8 F 103 H 16 131/81 H 99 08/15/18 21:15 08/15/18 21:15 08/15/18 21:15 08/15/18 21:15 08/15/18 21:15 - Laboratory Result Diagrams: 08/16/18 00:34 08/16/18 00:34 Laboratory results interpreted by me: 08/16/18 08/16/18 00:34 00:34 RBC 4.08 L MCH 34.0 H Acetaminophen < 10 L Discharge - Discharge Clinical Impression: Alcohol intoxication Qualifiers: Complication of substance-induced condition: uncomplicated Qualified Code(s): F10.920 - Alcohol use, unspecified with intoxication, uncomplicated Condition: Good Disposition: HOME, SELF-CARE Instructions: Chronic Alcoholism ([facility]) Additional Instructions: You have been evaluated in the Emergency Department for chronic alcoholism. You have been medically cleared and has been both stable and comfortable during your stay. Please follow-up with your primary physician as instructed in 1-2 weeks to be rechecked. Please also follow-up with your outpatient therapists. You have been provided with a prescription for Librium to help prevent withdrawal, please take this as instructed.. Return to the Emergency Department if you experience weakness, increased tremors of the extremities, experience hallucinations, or any other concerning symptoms. Prescriptions: Ondansetron [Zofran Odt 4 mg Tablet] 1 tab PO Q6HP PRN #30 tab.rapdis PRN Reason: For Nausea/Vomiting Chlordiazepoxide HCl [Librium 25 mg Capsule] 1 cap PO TID #18 capsule Print Language: Luxembourgish
[2018-08-15 23:01] LABS: APPEARANCE,URINE CLEAR; BILIRUBIN,URINE NEGATIVE (NEGATIVE); COLOR,URINE YELLOW; GLUCOSE, URINE NEGATIVE (NEGATIVE); KETONES,URINE NEGATIVE (NEGATIVE); LEUKOCYTE ESTERASE,URINE NEGATIVE (NEGATIVE); NITRITE,URINE NEGATIVE (NEGATIVE); PROTEIN,URINE NEGATIVE (NEGATIVE); URINE SPECIFIC GRAVITY 1.008; UROBILINOGEN,URINE NEGATIVE mg/dL (<2.0)
[2018-08-16] MEDS ORDERED: ACETAMINOPHEN 325 MG TABLET PO ONE (00:16)
[2018-08-16 00:59] LABS: ABSOLUTE EOSINOPHILS # (AUTO) 0.1 10^3/uL (0.0-0.6); ABSOLUTE MONOCYTES (AUTO) 0.4 10^3/uL (0.1-1.4); ABSOLUTE NEUT (AUTO) 3.6 10^3/uL (1.7-8.2); BASOPHILS % (AUTO) 0.5 % (0-2); EOSINOPHILS % (AUTO) 1.2 % (0-6); HEMATOCRIT 39.2 % (37.9-51.0); HEMOGLOBIN 13.9 g/dL (13.5-17.0); LYMPHOCYTES % (AUTO) 32.7 % (13-45); MEAN CORPUSCULAR HGB CONC 35.4 g/dL (32.0-36.0); MEAN CORPUSCULAR VOLUME 96 fl (80-97); PLATELET COUNT 225 10^3/uL (150-450); RED BLOOD COUNT 4.08 10^6/uL (4.35-5.55); RED CELL DISTRIBUTION WIDTH 13.3 % (11.5-14.0); SEGMENTED NEUTROPHILS % (AUTO) 58.6 % (42-78); TOTAL CELLS COUNTED % (AUTO) 100 %; WHITE BLOOD COUNT 6.1 10^3/uL (4.0-10.5)
[2018-08-16 01:19] LABS: ACETAMINOPHEN < 10 ug/mL (10-30); ALANINE AMINOTRANSFERASE 29 U/L (21-72); ALCOHOL 116 mg/dL (NONE DETECTED); ALKALINE PHOSPHATASE 63 U/L (38-126); ANION GAP 12 (5-19); ASPARTATE AMINO TRANSFERASE 33 U/L (17-59); BILIRUBIN,DIRECT 0.1 mg/dL (0.0-0.4); BILIRUBIN,TOTAL 0.3 mg/dL (0.2-1.3); BLOOD UREA NITROGEN 9 mg/dL (7-20); CALCIUM 9.4 mg/dL (8.4-10.2); CARBON DIOXIDE 24 mmol/L (22-30); CHLORIDE 105 mmol/L (98-107); GLUCOSE 90 mg/dL (75-110); SODIUM 141.2 mmol/L (137-145); TOTAL PROTEIN 7.6 g/dL (6.3-8.2)
[2018-08-16 02:20] LABS: URINE BENZODIAZEPINES SCREEN NEGATIVE; URINE COCAINE SCREEN NEGATIVE; URINE MARIJUANA (THC) SCREEN NEGATIVE; URINE METHADONE SCREEN NEGATIVE; URINE PHENCYCLIDINE SCREEN NEGATIVE
[2018-08-16 02:22] LABS: URINE AMPHETAMINES SCREEN NEGATIVE; URINE BARBITURATES SCREEN NEGATIVE
[2018-08-16] MEDS ORDERED: DIAZEPAM 5 MG TABLET PO ONE (05:07)
[2018-08-16 05:12] VITALS: BP 153/104
--- NOTE | 2018-08-16 07:41 | EKG REPORT ---
SEVERITY:- NORMAL ECG - SINUS RHYTHM : Confirmed by: Ayan Donis MD 16-Aug-2018 07:40:57
== END 2018-08-16 05:23 | disposition home or self-care (01) ==
LOC: ER 20:41
DX: F10.129 Alcohol abuse with intoxication, unspecified (principal); Y90.5 Blood alcohol level of 100-119 mg/100 ml; F17.200 Nicotine dependence, unspecified, uncomplicated; Z91.048 Other nonmedicinal substance allergy status
CPT/HCPCS: 36415; 80053; 80307; 81001; 85025; 93005; 93010; 99284